=== PATIENT | female | born 1965 | race Two or more races ===

== ENCOUNTER 2017-04-16 05:55 | Emergency (ER) | payer OTHER ==
[~2017-04-16 05:55] MED LIST: NO MEDICATIONS
== END 2017-04-16 06:45 ==
LOC: EDMED 05:55
DX: S46.912A Strain of unspecified muscle, fascia and tendon at shoulder and upper arm level, left arm, initial encounter (principal); Z90.49 Acquired absence of other specified parts of digestive tract; Z90.89 Acquired absence of other organs; Z98.890 Other specified postprocedural states; F17.200 Nicotine dependence, unspecified, uncomplicated; X50.1XXA Overexertion from prolonged static or awkward postures, initial encounter; Y93.89 Activity, other specified; Y92.69 Other specified industrial and construction area as the place of occurrence of the external cause; Y99.0 Civilian activity done for income or pay